=== PATIENT | male | born 1955 | race Caucasian/White ===

== ENCOUNTER 2018-01-31 06:58 | Observation (INO) | payer OTHER ==
[2018-01-31] MEDS ORDERED: DEXAMETHASONE 10 MG/ML VIAL IVP ONE ×2 (07:19→17:00)
--- NOTE | 2018-01-31 07:26 | EDPHY ---
H & P Stated Complaint: swelling under tongue post dental procedure/can't swallow/talk Time Seen by Provider: 01/31/18 07:13 HPI/ROS: CHIEF COMPLAINT: Swelling under tongue HISTORY OF PRESENT ILLNESS: 62-year-old male presents with swelling under the tongue. Yesterday he had a dental procedure to a left lower molar. After the procedure, he developed swelling under his tongue. He called his dentist, who told him to massage the area. Gradually increasing swelling and pain since the procedure, associated with difficulty swallowing and speaking as well as swelling under his chin. Pain is moderate and constant. Tongue is also swollen. No fever. Not on antibiotics. REVIEW OF SYSTEMS: complete 10 point ROS negative except at noted in the HPI - Personal History Current Tetanus Diphtheria and Acellular Pertussis (TDAP): Yes - Medical/Surgical History Hx Asthma: No Hx Chronic Respiratory Disease: No Hx Diabetes: No Hx Cardiac Disease: No Hx Renal Disease: No Hx Cirrhosis: No Hx Alcoholism: No Hx HIV/AIDS: No Hx Splenectomy or Spleen Trauma: No Other PMH: denies - Social History Smoking Status: Never smoked Alcohol Use: Sober Drug Use: None Additional Social History: - Physical Exam Exam: General Appearance: Alert, voice is hoarse, reluctant to speak Eyes: Pupils equal and round, no conjunctival pallor ENT, Mouth: Moderate tongue swelling, swelling and tenderness under the tongue , mucous membranes moist Neck: Submandibular swelling and tenderness, no stridor Respiratory: Normal respiratory rate, Lungs are clear to auscultation Cardiovascular: Regular rate and rhythm Gastrointestinal: Abdomen is soft and nontender Neurological: A&O, nonfocal exam Skin: Warm and dry Extremities: normal inspection Psychiatric: Mood and affect normal Constitutional: Initial Vital Signs Temperature (C) 36.6 C 01/31/18 07:05 Heart Rate 116 H 01/31/18 07:05 Respiratory Rate 20 01/31/18 07:05 Blood Pressure 153/91 H 01/31/18 07:05 O2 Sat (%) 94 01/31/18 07:05 O2 Delivery Mode Room Air Allergies/Adverse Reactions: articaine Allergy (Severe, Verified 01/31/18 15:06) procaine [From Novocain] Allergy (Severe, Verified 01/31/18 15:07) Home Medications: Medication Instructions Recorded Atorvastatin Calcium [Lipitor 40 40 mg PO HS 01/31/18 mg (*)] Chlorpheniramine Maleate [Allergy 4 mg PO DAILY PRN 01/31/18 Relief] Hydrocodone/Acetaminophen [[place] 1 - 2 tab PO Q6H PRN 01/31/18 5/325 (*)] Ibuprofen [Motrin (*)] 200 - 600 mg PO Q4HRS PRN 01/31/18 Medical Decision Making - Diagnostics Imaging Results: Imaging Impressions Neck CT 01/31/18 07:18 Impression: 1. Extensive edema throughout the submandibular space which may represent acute infection. Moderate epiglottal thickening, salivary gland enlargement and parapharyngeal soft tissue edema. Involvement is bilateral but, left greater than right, causing a small degree of rightward and posterior airway deviation. 2. No drainable abscess or soft tissue gas. Nonthickened retropharyngeal tissues. 3. Evaluation of the mandible and tongue is hindered by metallic artifact. Findings were communicated by telephone with Dr. ASH FORD at 01/31/2018 9: 24 ED Course/Re-evaluation: This patient presents with significant sublingual in submandibular swelling, concerning for Joshua's angina after recent dental procedure. Maintaining his airway adequately. On arrival, Decadron [address] scan reveals submandibular edema without evidence of abscess or hematoma. Results discussed with the patient and his . On reassessment, no significant change, maintaining airway adequately. The hospitalist service was consulted for admission. ENT was consulted, discussed with Deborah Potts, will see Emergency Department. Clindamycin 600 mg IV given. Pt seen by Becki ENT PA, fiberoptic laryngoscopy reveals normal vocal cords, swelling of the epiglottis present. Pt remained stable on serial exams x 3. No evidence of airway compromise. I spent a total of 40 minutes of critical care time in obtaining history, performing a physical exam, bedside monitoring of interventions, collecting and interpreting tests and discussion with consultants but not including time spent performing procedures. Differential Diagnosis: includes though not limited to Joshua's angina, postoperative hematoma, airway compromise - Data Points Laboratory Results: Laboratory Results 01/31/18 07:30 01/31/18 07:30 01/31/18 01/31/18 01/31/18 08:21 07:30 07:30 WBC 11.97 10^3/uL H 10^3/uL (3.80-9.50) RBC 4.84 10^6/uL 10^6/uL (4.40-6.38) Hgb 15.1 g/dL g/dL (13.7-17.5) Hct 43.7 % % (40.0-51.0) MCV 90.3 fL fL (81.5-99.8) MCH 31.2 pg pg (27.9-34.1) MCHC 34.6 g/dL g/dL (32.4-36.7) RDW 13.8 % % (11.5-15.2) Plt Count 331 10^3/uL 10^3/uL (150-400) MPV 9.0 fL fL (8.7-11.7) Neut % (Auto) 87.8 % H % (39.3-74.2) Lymph % (Auto) 5.9 % L % (15.0-45.0) [place] % (Auto) 5.6 % % (4.5-13.0) Eos % (Auto) 0.2 % L % (0.6-7.6) Baso % (Auto) 0.3 % % (0.3-1.7) Nucleat RBC Rel Count 0.0 % % (0.0-0.2) Absolute Neuts (auto) 10.52 10^3/uL H 10^3/uL (1.70-6.50) Absolute Lymphs (auto) 0.71 10^3/uL L 10^3/uL (1.00-3.00) Absolute Monos (auto) 0.67 10^3/uL 10^3/uL (0.30-0.80) Absolute Eos (auto) 0.02 10^3/uL L 10^3/uL (0.03-0.40) Absolute Basos (auto) 0.03 10^3/uL 10^3/uL (0.02-0.10) Absolute Nucleated RBC 0.00 10^3/uL 10^3/uL (0-0.01) Immature Gran % 0.2 % % (0.0-1.1) Immature Gran # 0.02 10^3/uL 10^3/uL (0.00-0.10) Sodium 140 mEq/L mEq/L (135-145) Potassium 4.4 mEq/L mEq/L (3.3-5.0) Chloride 102 mEq/L mEq/L (97-110) Carbon Dioxide 24 mEq/l mEq/l (22-31) Anion Gap 14 mEq/L mEq/L (8-16) BUN 12 mg/dL mg/dL (7-23) Creatinine 0.9 mg/dL mg/dL (0.7-1.3) Estimated GFR > 60 Glucose 103 mg/dL H mg/dL (70-100) Calcium 8.9 mg/dL mg/dL (8.5-10.4) POC Troponin I 0.01 ng/mL ng/mL (0.00-0.08) Medications Given: Diphenhydramine HCl (Benadryl Injection) 25 mg IVP Q4HRS PRN PRN Reason: Itching Stop: 07/30/18 13:18 Last Admin: 01/31/18 13:47 Dose: 25 mg Hydromorphone HCl (Dilaudid) 0.4 mg IVP Q4HRS PRN PRN Reason: Pain, Severe Unable to Take PO Stop: 02/10/18 12:46 Last Admin: 01/31/18 14:37 Dose: 0.4 mg Sodium Chloride (Ns) 1,000 mls @ 100 mls/hr IV CONT MERLYN Stop: 07/30/18 12:59 Last Admin: 01/31/18 14:38 Dose: 1,000 mls Discontinued Medications Dexamethasone (Decadron Injection) 10 mg IVP EDNOW ONE Stop: 01/31/18 07:20 Last Admin: 01/31/18 07:57 Dose: 10 mg Clindamycin Phosphate/Dextrose (Cleocin 600 Mg (Premix)) 50 mls @ 100 mls/hr IV EDNOW ONE PRN Reason: Protocol Stop: 01/31/18 10:40 Last Admin: 01/31/18 10:36 Dose: 50 mls Clindamycin Phosphate/Dextrose (Cleocin 600 Mg (Premix)) 50 mls @ 100 mls/hr IV Q8HRS MERLYN PRN Reason: Protocol Stop: 03/02/18 13:59 Last Admin: 01/31/18 14:59 Dose: Not Given Morphine Sulfate (Morphine) 4 mg IVP EDNOW ONE Stop: 01/31/18 09:42 Last Admin: 01/31/18 10:02 Dose: 4 mg Morphine Sulfate (Morphine) 4 mg IVP EDNOW ONE Stop: 01/31/18 13:26 Last Admin: 01/31/18 13:46 Dose: 4 mg Ondansetron HCl (Zofran) 4 mg IVP EDNOW ONE Stop: 01/31/18 09:42 Last Admin: 01/31/18 10:02 Dose: 4 mg Point of Care Test Results: Chemistry 01/31/18 08:21 POC Troponin I 0.01 ng/mL ng/mL (0.00-0.08) Departure - Departure Disposition: Home, Routine, Self-Care Clinical Impression: Submandibular swelling, Tongue swelling Condition: Serious
[2018-01-31 08:06] LABS: PLATELET COUNT 331 10^3/uL (150-400)
[2018-01-31] MEDS ORDERED: IOPAMIDOL (ISOVUE-300) 100 ML BTL ONE (08:23)
[2018-01-31] MEDS ORDERED: ONDANSETRON 4 MG/2 ML VIAL IVP ONE (09:41)
[2018-01-31] MEDS ORDERED: CLINDAMYCIN 600 MG/DEXTROSE 50 ML IV ONE (10:11)
[2018-01-31] MEDS ORDERED: PHENOL 177 ML THROAT SPRAY PO PRN (12:48)
--- NOTE | 2018-01-31 13:30 | GHP ---
[f rep st] HISTORY AND PHYSICAL DATE OF ADMISSION: 01/31/2018 CHIEF COMPLAINT: Tongue and facial swelling. HISTORY OF PRESENT ILLNESS: A 62-year-old male with a history of hyperlipidemia , who underwent a dental procedure yesterday, in which they did a crown elongation, which involves grinding at the base of the tooth and also removed a bone spur. After the procedure, he developed swelling under his tongue. He called the dentis and they told him to massage the area. This swelling progressed overnight, and he has now developed difficulty swallowing and inability to control secretions. Reports feeling feverish and sweaty at home. Also complaining of burning throat at this time. Articane was used during procedure; he has tolerated Novocaine in past. ALLERGIES: Denies any known allergies. REVIEW OF SYSTEMS: I completed a 10-point review of systems, negative, except as noted in HPI. PAST MEDICAL HISTORY: Hyperlipidemia. PAST SURGICAL HISTORY: Inguinal hernia repair. SOCIAL HISTORY: Lives in [place] with his . 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 Drinks occasional alcohol. No tobacco or illicits. FAMILY HISTORY: Noncontributory. HOME MEDICATIONS: Atorvastatin 40 mg daily, [place] 5/325, ibuprofen, and allergy relief. PHYSICAL EXAM: VITAL SIGNS: Temperature 36.6, blood pressure 155/90, heart rate 78-116, respirations 18. He is 96% on room air. GENERAL: Mildly uncomfortable, sitting up, but in no acute distress. HEENT: Significant tongue swelling. He cannot protrude it completely. Also with submandibular swelling and tenderness on the left. CV: Regular rate and rhythm. LUNGS: Clear. No wheezing. No stridor. ABDOMEN: Soft, nontender, nondistended. Positive bowel sounds. : No Mejia. MUSCULOSKELETAL: 5/5 upper and lower extremity strength. NEUROLOGIC: 2 through 12 intact. PSYCH: Alert and oriented x3. LABS: WBC 11, hemoglobin 15, hematocrit 43, platelets 331. Sodium 140, potassium 4.4, chloride 102, carbon dioxide 24, BUN 12, creatinine 0.9, glucose 108. Troponin is less than 0.01. Neck CT: Extensive edema throughout the submandibular space, which may represent acute infection. Moderate epiglottic thickening, salivary gland enlargement and parapharyngeal soft tissue edema. Involvement is bilateral, left greater than right, causing a small degree of rightward posterior airway deviation. No drainable abscess. ASSESSMENT AND PLAN: 1. Acute tongue and submandibular edema: due to local anesthetic. ENT scoped the patient in the ER and noted epiglottal and throat swelling. No airway compromise overnight. They recommend Decadron 10mg TID, Clindamycin. They will re-scope this afternoon. Add Articane to allergy list 2. Acute facial pain: Secondary to recent procedure and swelling. Provide p.r.n. IV opioids. 3. Hyperlipidemia: Hold statin until able to swallow. 4. Diet: N.p.o. 5. DVT prophylaxis: SCDs. 6. Disposition: Patient warrants observation admission given acute tongue and submandibular swelling, warranting further ENT evaluation, IV steroids and continuous pulse ox. /[id number]/MODL MTDD
[2018-01-31] MEDS ORDERED: CLINDAMYCIN 600 MG/DEXTROSE 50 ML IV SCH (14:00)
--- NOTE | 2018-01-31 14:10 | PDCONSULT ---
Engineering Technical Writer Note: HPI: This 62 year old male presented to ER this morning for sublingual edema and pain following dental procedure yesterday. He reports dentis performed grinding to left mandibular bone spur, base of tooth. He reports difficulty talking, swallowing. Breathing is okay. Symptoms have been stable to improved since this morning. ROS: Negative unless noted in HPI. Past medical history: Noncontributory. Allergies: NKDA Medications: Atorvastatin, norco Vital signs: BP 150-104, HR 104, Temp 36.6, Resp 20 on nasal canula. Physical Exam: Patient was evaluated in ER. He struggles to talk and swallow. Breathing okay, no stridor. EOMs intact. Mouth reveals moderate anterior sublingual swelling, without evidence of fluctuance. No bleeding. Oropharynx difficult to visualize. Neck without masses, lymphadenopathy. Fiberoptic laryngoscopy reveals moderate swelling to lingual epiglottis. Larynx and VCs clear. Good VC movement, glottic airway intact. Imaging: Neck CT reviewed: Edema throughout submandibular space, moderate epiglottal thickening, salivary gland enlargement and parapharyngeal soft tissue edema, right>left, causing a small degree of rightward and posterior airway deviation. No drainable abscess or soft tissue gas. Nonthickened retropharyngeal tissues. Assesment/Plan: 62 year old male with postoperative sublingual edema extending to base of tongue. I have recommended dexamethasone 10 mg TID and clindamycin 600 mg QID. He will be admitted to the floor for observation including O2 monitoring. We will plan to see him again this afternoon. Plan reviewed with Dr. Lyn.
[2018-01-31] MEDS: HYDROmorphONE/DILAUDID 1 MG/ML INJ IVP PRN ×2 (14:37→22:14)
[2018-01-31] MEDS: NS 1,000 ML IV SCH (14:38)
[2018-01-31] MEDS ORDERED: DEXAMETHASONE 10 MG/ML VIAL IVP SCH ×2 (16:00→19:00)
--- NOTE | 2018-01-31 16:59 | SOAPPROG ---
SOAP Progress Note Assessment/Plan: Assessment/Plan: Patient is improved. Talking better. Pain improved. Fiberoptic laryngoscopy shows edema stable. Patient evaluated by Dr. Lyn as well. Will increase next 2 doses of decadron to 15 mg, then return to 10 mg. Plan to see patient tomorrow. 01/31/18 16:57 Objective: Vital Signs Temp Pulse Resp BP Pulse Ox 37.3 C 105 H 20 119/71 93 01/31/18 16:08 01/31/18 16:08 01/31/18 16:08 01/31/18 16:08 01/31/18 16:08 ICD10 Worksheet Patient Problems: Problems Problem Status Onset Submandibular swelling Acute Tongue swelling Acute
[2018-01-31] MEDS: CLINDAMYCIN 900 MG/DEXTROSE 50 ML IV SCH (17:03)
[2018-01-31] MEDS: D5W IV SCH (22:08)
[2018-01-31] MEDS: DEXAMETHASONE IV SCH (22:08)
[2018-02-01] MEDS: NS 1,000 ML IV SCH (02:16)
[2018-02-01] MEDS: CLINDAMYCIN 900 MG/DEXTROSE 50 ML IV SCH ×2 (02:16→09:46)
[2018-02-01] MEDS: DEXAMETHASONE IV SCH ×2 (05:15→09:47)
[2018-02-01] MEDS: D5W IV SCH ×2 (05:15→09:47)
[2018-02-01 07:43] VITALS: BP 126/75
--- NOTE | 2018-02-01 09:30 | SOAPPROG ---
SOAP Progress Note Assessment/Plan: Assessment: 62 year old male with resolving sublingual edema after dental work. He feels much better today. Pain under control. Able to talk. Swelling decreased substantially. Laryngoscopic evaluation reveals widely patent airway. No epiglottic edema. No BOT edema. - OK from ENT perspective to d/c home - Please send home on Decadron 10mg q8 hours for 2 days then decadron 8mg q8 hours for 2 days then decadron 4mg q8 hours for 2 days -- I did discuss side effects with patient - Continue antibiotics for 10 days - OK to have regular/soft diet - Patient should follow-up with ENT sometime this week -- please give him our phone number, , on discharge Plan discussed with Dr. Lyn and he agrees. 02/01/18 09:27 Subjective: Feeling much better today. Able to talk/swallow. Feels pain is much better as is swelling. Objective: Vital Signs Temp Pulse Resp BP Pulse Ox 37.2 C 80 16 126/75 H 93 02/01/18 07:42 02/01/18 07:42 02/01/18 07:42 02/01/18 07:42 02/01/18 07:42 01/31/18 02/01/18 02/02/18 05:59 05:59 05:59 Intake Total 1438 Balance 1438 FOM edema much improved, soft OP normal Mild edema to the left neck around the mandible Tongue no longer being pushed back Laryngoscopic evaluation reveals widely patent airway. No epiglottic edema. TVCs move well on phonation/respiration. ICD10 Worksheet Patient Problems: Problems Problem Status Onset Submandibular swelling Acute Tongue swelling Acute
[2018-02-01] MEDS ORDERED: DEXAMETHASONE 4 MG TAB PO SCH (10:00)
[2018-02-01] MEDS ORDERED: OXYCODONE/APAP 5/325 TAB PO ONE (10:45)
--- NOTE | 2018-02-01 11:03 | ASMTCMCOM ---
CM Note CM Note Notes: CM reviewed chart for D/C planning. Pt is a 62 y/o male. He underwent a dental procedure on 01/30/2018, complications developed with swelling under his tongue which progressed and then caused trouble swallowing and an inability to control secretions. He felt sweaty and feverish. They treated him and he is stable today and discharging. Prior to D/C Pt lived independently with his . He will return to independent. CM available if needs change. D/C Plan: Independent. Date Signed: 02/01/2018 11:02 AM Electronically Signed By:Krystal Lyn
--- NOTE | 2018-02-01 11:04 | ASMTLACE ---
LACE Length of stay for Answers: 1 day current admission Acuity / Level of Answers: Yes Care: Did the patient have an inpatient admission? Comorbidities - select Answers: Other Notes: hyperlipidemia all that apply # of Emergency department Answers: 0 visits in the last 6 months Score: 5 Date Signed: 02/01/2018 11:04 AM Electronically Signed By:Krystal Lyn
--- NOTE | 2018-02-01 17:45 | GDS ---
[f rep st] DISCHARGE SUMMARY DISCHARGE DIAGNOSES: 1. Acute tongue and submandibular edema. 2. Acute facial pain. 3. Hyperlipidemia. CONSULTATIONS: ENT. HPI: A 62-year-old male with a history of hyperlipidemia, who underwent a dental procedure the day prior to admission, in which they did a crown elongation involving right near the base of the tooth and also removal of a bone spur. After the procedure, he developed swelling of his tongue. He called his dentist, and they told him to massage the area. He subsequently developed progressive swelling overnight to the point where his tongue was swollen, and he could not swallow. HOSPITAL COURSE BY PROBLEM: 1. Acute tongue/submandibular edema: suspect due to local anesthetic.. ENT scoped the patient in the emergency room and, at that time, noticed epiglottal throat swelling. Symptoms are nearly resolved today after IV Decadron. He is eating without issue. We will continue Decadron and clindamycin at discharge. I added are Articaine to his allergy list. 2. Acute facial pain secondary to his recent procedure. Recommend p.r.n. Advil , Tylenol and ice. 3. Hyperlipidemia. Statin. 4. Disposition. Patient is stable for discharge home with his . NEW MEDICATIONS: 1. Decadron taper. 2. Clindamycin 450 mg t.i.d. for 10 days. FOLLOWUP: 1. His primary care physician. 2. ENT provided contact information if has recurrent symptoms. PHYSICAL EXAM: VITAL SIGNS: Today, temperature 37.2, blood pressure 126/75. Heart rate is in the 80s, respirations 16, 93% on room air. GENERAL: In no acute distress. He is talking without issue today. HEENT: Mild edema of the left neck and mandible. His tongue is no longer swollen today. CV: Regular rate and rhythm. LUNGS: Clear. ABDOMEN: Soft, nontender. PSYCH: Alert and oriented x3. /[id number]/MODL MTDD
== END 2018-02-01 11:01 | disposition home or self-care (01) ==
LOC: F2N 14:21
PROVIDERS: ADMIT Internal Medicine; ATTEND Internal Medicine
PROC: 0CJS8ZZ Inspection of Larynx, Via Natural or Artificial Opening Endoscopic (ICD-10-PCS; principal; 2018-01-31)
DX: K91.89 Other postprocedural complications and disorders of digestive system (principal); J38.4 Edema of larynx; E78.5 Hyperlipidemia, unspecified
CPT/HCPCS: 31575; 70491; 96374; 99291; G0378; 84484-PO; J1100; J1170; J1200; J2270; J2405; Q9967

== ENCOUNTER 2018-02-09 02:10 | Observation (INO) | payer OTHER ==
--- NOTE | 2018-02-09 02:15 | EDPHY ---
H & P Time Seen by Provider: 02/09/18 02:15 HPI/ROS: HPI CHIEF COMPLAINT: Tongue swelling. HISTORY OF PRESENT ILLNESS: Patient is a 62-year-old male, he presents emergency room with tongue swelling that he noticed around 1:00 a.m.. He was sleeping. Developed some facial pain and tongue swelling and this woke him from sleep. Decided come to the emergency room for evaluation. Of note this patient was here in January 31 for tongue swelling admitted. He was observed and this improved with IV Decadron it was thought that his tongue was swollen due to possible infection versus local anesthesia. He was placed on clindamycin. He continues to clindamycin on outpatient basis. He presents emergency room tonight with tongue swelling. Rather significant. He denies any trouble swallowing. Denies trouble speaking. Denies trouble breathing. He is not drooling. This woke him from sleep at 1:00 a.m. Is now 230 in the morning. Upon arrival to the emergency room I did Greet him immediately. He is in ER room 5. He immediately had an IV started was given 10 mg IV Decadron, IV Benadryl, IV Pepcid. We will closely monitor for further airway compromise and swelling. The patient need to be admitted to the intensive care unit for close observation. If the swelling gets worse he may need emergent intubation. Past Medical History: Denies significant medical history except for hyperlipidemia. Past Surgical History: Denies significant surgical history except for recent dental surgery on January 30. 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 Family History: Noncontributory. ROS REVIEW OF SYSTEMS: A comprehensive 10 point review of systems is otherwise negative aside from elements mentioned in the history of present illness. Exam Constitutional triage nursing summary reviewed, vital signs reviewed, awake/ alert. Eyes normal conjunctivae and sclera, EOMI, PERRLA. HENT oropharynx shows significant uniform tongue swelling and supple inguinal swelling, however uvula normal, posterior pharynx unremarkable, no stridor, not drooling, able swallow appropriately, able to breathe appropriately. normal inspection, atraumatic, moist mucus membranes, no epistaxis, neck supple/ no meningismus, no raccoon eyes. Respiratory no stridor no stridor on exam clear to auscultation bilaterally, normal breath sounds, no respiratory distress, no wheezing. Cardiovascular rate normal, regular rhythm, no murmur, no edema, distal pulses normal. Gastrointestinal soft, non-tender, no rebound, no guarding, normal bowel sounds, no distension, no pulsatile mass. Genitourinary no CVA tenderness. Musculoskeletal no midline vertebral tenderness, full range of motion, no calf swelling, no tenderness of extremities, no meningismus, good pulses, neurovascularly intact. Skin pink, warm, & dry, no rash, skin atraumatic. Neurologic awake, alert and oriented x 3, AAOx3, moves all 4 extremities equally, motor intact, sensory intact, CN II-XII intact, normal cerebellar, normal vision, normal speech. Psychiatric normal mood/affect. Heme/Lymph/Immune no lymphadenopathy. Differential Diagnosis: Includes but is not limited to in a particular order angioedema, acute allergic reaction, airway compromise, Joshua's angina. Medical Decision Making: Plan for this patient IV establishment aggressive treatment for tongue swelling, IV Decadron 10 mg IV, IV Benadryl 50 mg, IV Pepcid 20 mg, close observation. Will need admission to hospital. Will consult ENT. Re-evaluation: 0240: Spoke with Dr. Pelayo. Discussed case in detail. Recommend CT scan with IV contrast make sure there is no abscess. Treat with IV Decadron. Close observation. CT scan face with IV contrast shows supple lingual swelling and tongue swelling , no posterior pharynx swelling, no epiglottitis. Additionally on the left side most likely there is a duct inflammation 1st abscess however the ED is enhancing and rather elongated. Due to this I have ordered the patient IV clindamycin 900 mg. Patient given IV Decadron Here in emergency room Pepcid and Benadryl Patient need to be admitted to the hospital for close observation and ENT consult. No impending airway issue. Breathing appropriately. Swelling appropriately. 0405: Updated the patient. I did re-evaluate him there is no significant increase in swelling. He is able swallow appropriately. No stridor. Resting comfortably afebrile. Source: Patient - Medical/Surgical History Hx Asthma: No Hx Chronic Respiratory Disease: No Hx Diabetes: No Hx Cardiac Disease: No Hx Renal Disease: No Hx Cirrhosis: No Hx Alcoholism: No Hx HIV/AIDS: No Hx Splenectomy or Spleen Trauma: No Other PMH: denies - Social History Smoking Status: Never smoked Constitutional: Initial Vital Signs Temperature (C) 37 C 02/09/18 02:16 Heart Rate 102 H 02/09/18 02:16 Respiratory Rate 16 02/09/18 02:16 Blood Pressure 169/103 H 02/09/18 02:16 O2 Sat (%) 93 02/09/18 02:16 O2 Delivery Mode Room Air Allergies/Adverse Reactions: articaine Allergy (Severe, Verified 01/31/18 15:06) procaine [From Novocain] Allergy (Severe, Verified 01/31/18 15:07) Home Medications: Medication Instructions Recorded Atorvastatin Calcium [Lipitor 40 40 mg PO HS 01/31/18 mg (*)] Ibuprofen [Motrin (*)] 200 - 600 mg PO Q4HRS PRN 01/31/18 Clindamycin 450 mg PO Q8 #89 cap 02/01/18 Acetaminophen [Tylenol 325mg (*)] 325 mg PO Q6 PRN 02/09/18 Clindamycin 450 mg PO Q8 #36 cap 02/09/18 oxyCODONE/APAP 5/325 [Percocet 1 tab PO Q8H PRN 02/09/18 5/325 (*)] predniSONE 20 mg PO DAILY #9 tablet 02/09/18 Medical Decision Making - Data Points Laboratory Results: Laboratory Results 02/09/18 02:23 02/09/18 02:23 Medications Given: Discontinued Medications Dexamethasone (Decadron Injection) 10 mg IVP EDNOW ONE Stop: 02/09/18 02:20 Last Admin: 02/09/18 02:21 Dose: 10 mg Dexamethasone (Decadron Injection) 4 mg IVP Q6HRS MERLYN Stop: 08/08/18 07:59 Last Admin: 02/09/18 11:48 Dose: 4 mg Diphenhydramine HCl (Benadryl Injection) 50 mg IVP EDNOW ONE Stop: 02/09/18 02:20 Last Admin: 02/09/18 02:21 Dose: 50 mg Famotidine (Pepcid) 20 mg IVP EDNOW ONE Stop: 02/09/18 02:20 Last Admin: 02/09/18 02:21 Dose: 20 mg Fentanyl (Sublimaze) 50 mcg IVP EDNOW ONE Stop: 02/09/18 03:03 Last Admin: 02/09/18 03:11 Dose: 50 mcg Sodium Chloride (Ns) 1,000 mls @ 0 mls/hr IV EDNOW ONE; Wide Open PRN Reason: Protocol Stop: 02/09/18 02:20 Last Admin: 02/09/18 02:24 Dose: 1,000 mls Clindamycin Phosphate/Dextrose (Cleocin 900 Mg (Premix)) 50 mls @ 100 mls/hr IV EDNOW ONE PRN Reason: Protocol Stop: 02/09/18 04:22 Last Admin: 02/09/18 04:33 Dose: 50 mls Clindamycin Phosphate/Dextrose (Cleocin 600 Mg (Premix)) 50 mls @ 100 mls/hr IV Q8H MERLYN PRN Reason: Protocol Stop: 03/11/18 11:59 Last Admin: 02/09/18 11:47 Dose: 50 mls Sodium Chloride (Ns) 1,000 mls @ 75 mls/hr IV CONT MERLYN Stop: 08/08/18 05:14 Last Admin: 02/09/18 07:41 Dose: 1,000 mls Famotidine/Sodium Chloride (Pepcid 20 Mg (Premix)) 50 mls @ 200 mls/hr IV Q12HRS MERLYN Stop: 08/08/18 11:29 Last Admin: 02/09/18 11:50 Dose: 50 mls Departure - Departure Disposition: [facility] Acute Clinical Impression: Sublingual gland swelling, Tongue swelling Condition: Fair
[2018-02-09] MEDS ORDERED: FAMOTIDINE 20 MG/2 ML SDV IVP ONE (02:19)
[2018-02-09] MEDS ORDERED: DEXAMETHASONE 10 MG/ML VIAL IVP ONE (02:19)
[2018-02-09] MEDS ORDERED: NS 1,000 ML IV ONE (02:19)
[2018-02-09] MEDS ORDERED: IOPAMIDOL (ISOVUE-300) 100 ML BTL ONE (02:34)
[2018-02-09] MEDS ORDERED: fentaNYL 100 MCG/2 ML INJ IVP ONE (03:02)
[2018-02-09 03:10] LABS: PLATELET COUNT 409 10^3/uL (150-400)
[2018-02-09] MEDS ORDERED: CLINDAMYCIN 900 MG/DEXTROSE 50 ML IV ONE (03:53)
[2018-02-09] MEDS ORDERED: ONDANSETRON 4 MG/2 ML VIAL IVP PRN (05:11)
[2018-02-09] MEDS ORDERED: ACETAMINOPHEN 650 MG SUPP PR PRN (05:11)
[2018-02-09] MEDS ORDERED: ACETAMINOPHEN 325 MG TAB PO PRN (05:11)
[2018-02-09] MEDS ORDERED: LORazepam 2 MG/ML INJ IVP PRN (05:11)
[2018-02-09] MEDS ORDERED: NS 1,000 ML IV SCH (05:15)
[2018-02-09] MEDS: DEXAMETHASONE 4 MG/ML VIAL IVP SCH ×2 (07:41→11:48)
--- NOTE | 2018-02-09 08:04 | PDGENHP ---
History and Physical - Chief Complaint Tongue and facial swelling - History of Present Illness Source-patient provides history appears reliable. EMR was reviewed and case discussed with ED provider. HPI-this is a very pleasant 62-year-old gentleman with past medical history significant for hyperlipidemia on and more recently hospitalized for observation on 01/31/2018 and diagnosed with the infection verses per the dental anesthetic reaction causing tongue and throat swelling. Patient was discharged on clindamycin which she had continued as well as an add dexamethasone a burst completed 2 days ago. Patient reports that yesterday a.m. He noticed that he had just a little bit of mild tongue and throat swelling. He reports that he went to bed feeling relatively well and woke up approximately 1:00 a.m. With tongue swelling and facial pain and swelling. Patient denies any fevers chills or sweats. No cough sore throat rhinorrhea or sick contacts. Patient has not had any recent dental procedures. He denies any shortness of breath, cough, chest pain, palpitations. Patient without any lightheadedness. Denies any odynophagia or dysphagia. History Information - Allergies/Home Medication List Allergies/Adverse Reactions: articaine Allergy (Severe, Verified 01/31/18 15:06) procaine [From Novocain] Allergy (Severe, Verified 01/31/18 15:07) Home Medications: Atorvastatin Calcium [Lipitor 40 mg (*)] 40 mg PO HS 01/31/18 [Last Taken ] Chlorpheniramine Maleate [Allergy Relief] 4 mg PO DAILY PRN 01/31/18 [Last Taken Unknown] Hydrocodone/Acetaminophen [[place] 5/325 (*)] 1 - 2 tab PO Q6H PRN 01/31/18 [Last Taken 01/31/18 02:00] Ibuprofen [Motrin (*)] 200 - 600 mg PO Q4HRS PRN 01/31/18 [Last Taken Unknown] I have personally reviewed and updated: family history, medical history, social history, surgical history - Past Medical History Additional medical history: HLD - Surgical History Additional surgical history: Dental surgery, inguinal hernia repair - Family History Additional family history: Patient denies any known family history of anaphylactic reactions or allergies. Mother and father both with history HTN and dm 2. 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 He is . Cor status- full. Review of Systems Review of Systems: ROS: 10pt was reviewed & negative except for what was stated in HPI & below Constitutional: Reports: no symptoms. Denies: chills, fever EENMT: Reports: mouth pain, mouth swelling, throat swelling. Denies: blurred vision, nose congestion Cardiac: Reports: no symptoms. Denies: chest pain, edema, palpitations Respiratory: Denies: cough, shortness of breath Gastrointestinal: Reports: nausea (Patient reports some upset stomach with antibiotic treatment.). Denies: vomitting, abdominal pain Genitourinary: Reports: no symptoms, burning, dysuria Muscolosketal: Reports: joint pain (Chronic baseline. ). Denies: muscle pain Skin: Reports: no symptoms Neurological: Reports: headache, numbness, tingling (Face and tongue). Denies: anxiety, weakness Hematologic/Lymphatic: Reports: no symptoms Immunologic/Allergy: Reports: no symptoms (Except as the swelling as noted above in HPI.) Physical Exam Physical Exam: Selected Entries 02/09/18 02/09/18 02:16 05:20 Blood Pressure Automatic Method Heart Rate 102 H 87 Respiratory 16 18 Rate O2 Sat (%) 93 98 Temperature (C) 37 C 37.1 C Blood Pressure 169/103 H 130/81 H Mean Arterial 125 H 97 Pressure (MAP) O2 Delivery Nasal Cannula Room Air Mode Temperature Oral Oral Source Cardiac Rhythm Normal Sinus Rhythm Alarm Yes Parameters Assessed Temp Pulse Resp BP Pulse Ox 36.9 C 82 14 120/78 95 02/09/18 07:25 02/09/18 07:25 02/09/18 07:25 02/09/18 07:25 02/09/18 07:25 Constitutional: no apparent distress, appears nourished, not in pain, other ( Patient appears fatigued but in no acute distress. Resting quietly in bed) Eyes: PERRL, anicteric sclera, EOMI, No scleral injection Ears, Nose, Mouth, Throat: moist mucous membranes, other (Tongue is enlarged. Limits evaluation of oral pharynx per), No poor dentition Cardiovascular: regular rate and rhythym, no murmur, rub, or gallop, pulses symmetric bilaterally, No edema Peripheral Pulses: 2+: dorsalis-pedis (R), dorsalis-pedis (L) Respiratory: no respiratory distress, no rales or rhonchi, clear to auscultation Gastrointestinal: normoactive bowel sounds, soft, non-tender abdomen, no palpable masses, No distension Genitourinary: no bladder tenderness, No vitale in urethra Skin: warm, normal color, no rashes or abrasions Musculoskeletal: full muscle strength, no muscle tenderness, No generalized weakness Neurologic: AAOx3, sensation intact bilaterally, CN II-XII Intact, No facial droop Psychiatric: interacting appropriately, not anxious, not encephalopathic, thought process linear Lymph, Heme, Immunologic: other (Positive submandibular lymphadenopathy with tenderness on the left) Lab Data & Imaging Review 02/09/18 02:23 02/09/18 02:23 WBC 9.16 10^3/uL (3.80-9.50) 02/09/18 02:23 RBC 4.96 10^6/uL (4.40-6.38) 02/09/18 02:23 Hgb 15.4 g/dL (13.7-17.5) 02/09/18 02:23 Hct 44.7 % (40.0-51.0) 02/09/18 02:23 MCV 90.1 fL (81.5-99.8) 02/09/18 02:23 MCH 31.0 pg (27.9-34.1) 02/09/18 02:23 MCHC 34.5 g/dL (32.4-36.7) 02/09/18 02:23 RDW 14.3 % (11.5-15.2) 02/09/18 02:23 Plt Count 409 10^3/uL (150-400) H 02/09/18 02:23 MPV 9.0 fL (8.7-11.7) 02/09/18 02:23 Neut % (Auto) 75.0 % (39.3-74.2) H 02/09/18 02:23 Lymph % (Auto) 14.5 % (15.0-45.0) L 02/09/18 02:23 [place] % (Auto) 8.1 % (4.5-13.0) 02/09/18 02:23 Eos % (Auto) 1.3 % (0.6-7.6) 02/09/18 02:23 Baso % (Auto) 0.1 % (0.3-1.7) L 02/09/18 02:23 Nucleat RBC Rel Count 0.0 % (0.0-0.2) 02/09/18 02:23 Absolute Neuts (auto) 6.87 10^3/uL (1.70-6.50) H 02/09/18 02:23 Absolute Lymphs (auto) 1.33 10^3/uL (1.00-3.00) 02/09/18 02:23 Absolute Monos (auto) 0.74 10^3/uL (0.30-0.80) 02/09/18 02:23 Absolute Eos (auto) 0.12 10^3/uL (0.03-0.40) 02/09/18 02:23 Absolute Basos (auto) 0.01 10^3/uL (0.02-0.10) L 02/09/18 02:23 Absolute Nucleated RBC 0.00 10^3/uL (0-0.01) 02/09/18 02:23 Immature Gran % 1.0 % (0.0-1.1) 02/09/18 02:23 Immature Gran # 0.09 10^3/uL (0.00-0.10) 02/09/18 02:23 Sodium 141 mEq/L (135-145) 02/09/18 02:23 Potassium 4.2 mEq/L (3.3-5.0) 02/09/18 02:23 Chloride 102 mEq/L (97-110) 02/09/18 02:23 Carbon Dioxide 26 mEq/l (22-31) 02/09/18 02:23 Anion Gap 13 mEq/L (8-16) 02/09/18 02:23 BUN 16 mg/dL (7-23) 02/09/18 02:23 Creatinine 1.0 mg/dL (0.7-1.3) 02/09/18 02:23 Estimated GFR > 60 02/09/18 02:23 Glucose 92 mg/dL (70-100) 02/09/18 02:23 Calcium 9.4 mg/dL (8.5-10.4) 02/09/18 02:23 Imaging Review: CT Neck preliminary report. image reviewed. Moderate edema and enlarged submandibular glands L more than right with adjacent soft tissue edema. Peripheral enhancement of Submand duct on laft to base of tongue for length of 3cm vs tubular abscess/phlegmon No additional new finding Spoke w Dr Nickerson at 355am Assessment & Plan Assessment: 62-year-old gentleman with the recent history of dental surgery and recent hospitalization 01/31/2018 for tongue swelling and sublingual glands swelling who presents to the ED today with same. Tongue swelling (Acute) - patient with recurrent symptoms after discharge. It was initially felt that this could be related to on the dental medication and injections versus infectious process with recent dental procedure. He has been taking his clindamycin as scheduled. He recently discontinued his Decadron burst. He has not had any additional dental procedures or medications. He is not currently on [place] or [place]. ENT was called from the ED and will evaluate the patient in the morning. Patient without any respiratory distress, hypoxia. He received Decadron, Benadryl, famotidine in the ED. Patient reports just a minimal improvement. Will plan to continue IV clindamycin as patient is afebrile he does not meet sepsis or SIRS criteria and no evidence that escalation antibiotic therapy is indicated at this time. Sublingual gland swelling (Acute) - CT with noted some increased swelling edema on the left compared to the right sublingual gland. Patient does have some tenderness to palpation. Consider infectious process versus the localized edema. Again ENT will is consult to will see the patient in morning. HLD-resume patient's home medications at discharge. FEN - patient of receive some gentle IV fluid hydration overnight he will be NPO pending ENT evaluation. Electrolyte monitoring replacement if needed. PPX-SCDs. Holding anticoagulation pending ENT assessment. Encourage mobilization and consider Lovenox if patient should need to stay additional day. Cor status-full Disposition-patient admitted to observation status on SDU. He requires close on respiratory monitoring on the SCU given his significant tongue and facial swelling.
[2018-02-09] MEDS ORDERED: FAMOTIDINE 20 MG/NACL 50 ML IV SCH (11:30)
[2018-02-09 11:35] VITALS: BP 122/80
[2018-02-09] MEDS ORDERED: CLINDAMYCIN 600 MG/DEXTROSE 50 ML IV SCH (12:00)
--- NOTE | 2018-02-09 14:15 | GCON ---
[f rep st] CONSULTATION ENT CONSULTATION DATE OF CONSULTATION: 02/09/2018 CHIEF COMPLAINT: Facial and oral swelling. HISTORY OF PRESENT ILLNESS: The patient is a 62-year-old male with oral and neck swelling. His init ial episode was about a week ago and was following a left-sided mandibular oral surgery. He was admi tted at that point and given clindamycin and Decadron. He had significant improvement during that ad mission and was discharged on clindamycin and Decadron. He recently completed his outpatient Decadro n this last and last night awoke with significant neck and oral swelling again. In the ED, he was given Decadron and continued on clindamycin. Today, he states his symptoms have improved dras tically and that the swelling and discomfort is all but gone. Throughout he has not had any difficul ties with swallowing or breathing. He has been able to tolerate liquids, although was placed n.p.o. for pending evaluation. He reports that his surgery with an oral maxillofacial surgeon, included rem oving mandibular ne, as well as addressing dental caries on that side. He denies cough, dysphagia, odynophagia, fevers, chills, oral pain, difficulty breathing. ALLERGIES: Listed as articaine and procaine, secondary to his last visit. I question this given the likely etiology of his current issues. PAST MEDICAL HISTORY: Reviewed. PAST SURGICAL HISTORY: Recent dental surgery, hernia repair. FAMILY HISTORY: Noncontributory. SOCIAL HISTORY: History never smoked, occasionally uses alcohol, no drug use. REVIEW OF SYSTEMS: Negative, but for what was mentioned in the HPI. PHYSICAL EXAMINATION: VITAL SIGNS: As put in AVSS. GENERAL: Alert, interactive, no acute distress . HEENT: Head and face normocephalic, atraumatic with generally symmetric facial features. Ears: Bilateral pinnae and canals are unremarkable with no evidence of erythema, swelling, or otorrhea. Ey es: EOMI. Nose: Normally formed, unremarkable anterior rhinoscopy, patent. Oral cavity/oropharynx : Floor of mouth is pertinent for right-sided mandibular ne. Left side medial mandible mucosa and gingival mucosa have a granulating incision extending from the base of the incisors posteriorly to t he 1st molar. No erythema or drainage at the site. This does obscure the visualization of Bea's duct on this side. [place]'s duct difficult to visualize on the on the contralateral side, secondar y to mandibular ne. Pressure on the submandibular salivary glands produces equivocal saliva at bot h Bea's ducts, right greater than left. No purulence was expressed during this. Floor of mouth is soft and without palpable mass. Tongue is unremarkable. Posterior oropharynx is clear and widely patent. Voice is normal. NECK: Left submandibular fullness. Left submandibular is slightly enlar ged relative to the right. Mildly tender to palpation. No palpable masses or fluctuance. No overly ing skin changes other than visualized fullness. NEUROLOGIC: Cranial nerves 2-12 intact. LABORATORY/IMAGING: CT neck was performed. I reviewed both radiology read and the imaging. There a ppears to be dilation of the left [place]'s duct. No visible masses or evidence of sialolith. Laboratory reviewed, notably, normal white blood cell count. ASSESSMENT: 62-year-old male with left submandibular sialoadenitis and dilation of the ipsilateral W shira's duct. I suspect given his recent surgery, there may have been injury to this duct or at the very least, the swelling has caused obstruction of the duct and possible infectious sialoadenitis or obstruction of the duct. I would recommend continuing steroids and antibiotics. Would consider switching to Augmentin, but he seems to be doing okay with the clindamycin. No plans to do surgery at this point. We will see if we can have him improve on medications. As well, I recommended he start t.i.d. massages of the left submandibular gland, t.i.d. hot compresses, hydration, and sialagogues. He understands that I will b e available for the next couple of days should his symptoms worsen or return. Otherwise as I will be out of town this coming Saturday, I recommend he follow up with Dr. Lyn who he saw at his last visit. Should he be doing well otherwise, he can follow up with me in 2-3 weeks. Please call me if you have any questions. My cell phone number is [phone]. /[id number]/MODL
--- NOTE | 2018-02-09 15:51 | GDS ---
[f rep st] DISCHARGE SUMMARY CHIEF COMPLAINT: Facial and mouth swelling. HISTORY OF PRESENT ILLNESS: A 62-year-old male who was recently admitted a week ago after a left-sided mandibular oral surgery. At that time, he had significant tongue and mouth swelling that improved quickly with Decadron. He was discharged on a steroid taper and clindamycin. He did receive articaine during that procedure. He has completed steroids and saw his dentist on in which they removed his stitches. At that time, he did not receive any numbing agents or medications. He has been taking Tylenol and Advil intermittently for pain and 1 Percocet. He has tolerated these in the past without any allergic reaction. HOSPITAL COURSE: 1. Left submandibular sialadenitis and dilatation of ipsilateral [place]'s duct : The patient was evaluated by Dr. Pelayo with ENT who thinks that there was injury to this duct and may have caused an obstruction or infectious sialadenitis. No surgical intervention warranted. Will prescribe a prednisone taper for 1 week and complete a total of 2 weeks of clindamycin, thus 4 more days prescribed today. He may call Dr. Pelayo in the next couple of days if things do not improve. If not, he should follow up with either joselyn or Dr. Lyn in 2 weeks. He was also recommended t.i.d. massages, hot compresses, and hydration. Unclear if this is surgically related or was a reaction to medication at first. Given recurrent swelling, did send off a C1 esterase inhibitor. DISPOSITION: Patient is stable for discharge home. DISCHARGE MEDICATIONS: New medications: 1. Prednisone taper for 1 week. 2. Clindamycin x 4 days for total 14 days abx FOLLOW UP: 1. Dr. Pelayo and Dr. Lyn. 2. Primary care physician. LABORATORY PENDING: C1 esterase. PHYSICAL EXAMINATION: VITAL SIGNS: Today temperature 36.8, blood pressure 122/ 80, heart rate in the 80s, respirations 20, 94% on room air. GENERAL: He is well-appearing, sitting in bed, in no acute distress. HEENT: Submandibular swelling and tenderness. No overlying erythema or fluctuance. CV: Regular rate and rhythm. LUNGS: Clear. ABDOMEN: Soft, nontender, nondistended. Positive bowel sounds. : No Mejia. MUSCULOSKELETAL: 5/5 upper lower extremity strength. NEURO: 2 through 12 intact. PSYCH: Alert and oriented x3. TIME SPENT ON DISCHARGE: Greater 30 minutes discussing case with Dr. Pelayo patient and coordinating followup plan. /[id number]/MODL MTDD
--- NOTE | 2018-02-09 16:00 | ASMTLACE ---
LACE Length of stay for Answers: Less than 1 day current admission Acuity / Level of Answers: No Care: Did the patient have an inpatient admission? Comorbidities - select Answers: Other Notes: Tongue swelling all that apply # of Emergency department Answers: 1-2 visits in the last 6 months Score: 2 Date Signed: 02/09/2018 03:59 PM Electronically Signed By:Nathalia Gupta LCSW
--- NOTE | 2018-02-09 16:03 | ASMTCMCOM ---
CM Note CM Note Notes: 62yr old male admitted for tongue and facial swelling. Had a similar admission 01/31/18 after DDS work at that time was sent home on ABX. He has a Hx of HLD. Patient lives with his in [place]. No discharge needs anticipated. Date Signed: 02/09/2018 04:03 PM Electronically Signed By:Nathalia Gupta LCSW
--- NOTE | 2018-02-09 16:08 | ASDISCHSUM ---
Discharge Information Plan Status:Home with No Needs Medically Cleared to Leave:02/09/2018 Discharge Date:02/09/2018 03:58 PM CM D/C Disposition:Home, Routine, Self-Care ADT D/C Disposition:Home, Routine, Self-Care Projected Discharge Date:02/09/2018 04:00 PM Transportation at D/C:Family Discharge Delay Reason: Follow-Up Date:02/09/2018 04:00 PM Discharge Slot: Final Diagnosis:Tongue and facial swelling Placement Information Patient Contact Information Contact Name:HERMINIO Relationship: [address] [facility] City:[place] Alternate Phone: [facility]/Zip Code:[place] [address] Email: Financial Information Financial Class:HMO and PPO Plans Primary Plan Desc:[facility] Primary Plan Number:[id number] Secondary Plan Desc: Secondary Plan Number: Assessment Information LACE LACE Length of stay for Answers: Less than 1 day current admission Acuity / Level of Answers: No Care: Did the patient have an inpatient admission? Comorbidities - select Answers: Other Notes: Tongue swelling all that apply # of Emergency department Answers: 1-2 visits in the last 6 months Score: 2 Date Signed: 02/09/2018 03:59 PM Electronically Signed By:Nathalia Gupta LCSW [facility] CM Progress Note CM Note CM Note Notes: 62yr old male admitted for tongue and facial swelling. Had a similar admission 01/31/18 after DDS work at that time was sent home on ABX. He has a Hx of HLD. Patient lives with his in [place]. No discharge needs anticipated. Date Signed: 02/09/2018 04:03 PM Electronically Signed By:Nathalia Gupta LCSW Case Management Discharge Plan Note Case Management Discharge Discharge Order Complete? Answers: Yes Patient to Obtain Answers: via Family Medications Transportation Arranged Answers: Family/Friends Transport will Pick (Date 02/09/2018 04:00 PM & Time) Family Notified Answers: Yes Notes: Family to transport Discharge Comments Notes: Patient examined by ENT who thought the swelling might have been caused by injury to a duct which may have caused an obstruction. Patient has been discharged and to f/u with MD's Date Signed: 02/09/2018 04:07 PM Electronically Signed By:Nathalia Gupta LCSW Intervention Information
[2018-02-09] MEDS ORDERED: ATORVASTATIN CALCIUM 40 MG TAB PO SCH (21:00)
== END 2018-02-09 15:58 | disposition home or self-care (01) ==
LOC: F2N 05:01
PROVIDERS: ADMIT Family Medicine; ATTEND Internal Medicine
DX: K11.21 Acute sialoadenitis (principal); R22.0 Localized swelling, mass and lump, head; E78.5 Hyperlipidemia, unspecified
CPT/HCPCS: 70491; G0378; 96365; J1100; J1200; J3010; Q9967